=== PATIENT | female | born 1975 | race Two or more races ===

== ENCOUNTER 2022-07-19 13:09 | Emergency (ER) | payer BC ==
[~2022-07-19] VITALS: Ht 170.2 cm; Wt 70.9 kg
[~2022-07-19 13:09] MED LIST: DIAZ5TAB PO
[2022-07-19] MEDS ORDERED: iohexol 350MG/ML 100ml bottle IV ONE (13:28)
[2022-07-19 13:43] LABS: BASOPHILS % (AUTO) 0.5 % (0-1); EOSINOPHILS # (AUTO) 0.1 X10'3 (0-0.9); EOSINOPHILS % (AUTO) 0.8 % (0-6); HEMATOCRIT 40.7 % (35.0-45.0); HEMOGLOBIN 13.2 g/dl (12.0-16.0); LYMPHOCYTES # (AUTO) 2.5 X10'3 (1.1-4.8); LYMPHOCYTES % (AUTO) 27.4 % (21-51); MEAN CORPUSCULAR HEMOGLOBIN 26.4 PG (27.0-31.0); MEAN CORPUSCULAR HGB CONC 32.3 g/dL (33.0-36.5); MEAN CORPUSCULAR VOLUME 81.6 FL (78-98); MEAN PLATELET VOLUME 7.7 FL (7.4-10.4); MONOCYTES # (AUTO) 0.6 X10'3 (0-0.9); MONOCYTES % (AUTO) 6.8 % (2-12); NEUTROPHILS # (AUTO) 5.9 X10'3 (1.8-7.7); NEUTROPHILS % (AUTO) 64.5 % (42-75); PLATELET COUNT 255 X10'3 (140-440); RED BLOOD COUNT 4.99 X10'6 (4.20-5.60); WHITE BLOOD COUNT 9.1 X10'3 (4.5-11.0)
[2022-07-19] MEDS ORDERED: proCHLORperazine 10 MG/2 ml inj IV ONE (13:55)
[2022-07-19] MEDS ORDERED: ketorolac trometh. 30mg/ml inj. IV ONE (13:55)
[2022-07-19 14:00] LABS: ALANINE AMINOTRANSFERASE 38 U/L (12-78); ALBUMIN 3.6 G/DL (3.4-5.0); ALBUMIN/GLOBULIN RATIO 0.9 (1.1-1.5); ALKALINE PHOSPHATASE 138 IU/L (46-116); ANION GAP 7 (8-16); ASPARTATE AMINO TRANSFERASE 32 U/L (10-37); BILIRUBIN,TOTAL 0.4 MG/DL (0.1-1.0); BLOOD UREA NITROGEN 10 MG/DL (7-18); BUN/CREATININE RATIO 15.4 (6.6-38.0); CALCIUM 8.9 MG/DL (8.5-10.1); CHLORIDE 103 MMOL/L (99-107); CREATININE 0.65 MG/DL (0.40-0.90); GLUCOSE 99 MG/DL (70-104); POTASSIUM 3.6 MMOL/L (3.5-5.1); SODIUM 137 MMOL/L (135-145); TOTAL CARBON DIOXIDE 27.2 MMOL/L (24-32); TOTAL PROTEIN 7.8 G/DL (6.4-8.2); eGFR > 90 ML/MIN
[2022-07-19] MEDS ORDERED: ketorolac tromethamine 15mg/ml inj. IV ONE (14:00)
[2022-07-19 14:29] VITALS: BP 121/76
[2022-07-19] MEDS ORDERED: acetaminophen 325mg tablet PO ONE (14:55)
== END 2022-07-19 16:03 | disposition home or self-care (01) ==
LOC: ER 13:10
DX: G43.909 Migraine, unspecified, not intractable, without status migrainosus (principal); R79.1 Abnormal coagulation profile; Z79.899 Other long term (current) drug therapy
CPT/HCPCS: 36415; 70450; 70496; 70498; 71045; 80053; 83735; 83880; 84484; 85025; 85610; 86885; 86900; 86901; 93005; 96374; 96375; 99285; J0780; J1885; J3490; Q9967

== ENCOUNTER 2023-03-14 08:45 | Emergency (ER) | payer BC ==
[~2023-03-14] VITALS: Ht 167.6 cm; Wt 86.4 kg
[2023-03-14 08:50] VITALS: TEMP 98.2
[2023-03-14] MEDS ORDERED: iohexol 350MG/ML 100ml bottle IV ONE ×2 (08:52→09:34)
--- NOTE | 2023-03-14 08:53 | NUR ---
DR NIX AT BEDSIDE, MANAGER MOTOR AT BEDSIDE.
--- NOTE | 2023-03-14 08:54 | NUR ---
PATIENT TO CT AT THIS TIME WITH PRIMARY RN.
--- NOTE | 2023-03-14 09:13 | NUR ---
AWAITING FOR STROKE RN.
--- NOTE | 2023-03-14 09:16 | NUR ---
Andreea stroke RN at bedside, neuro tele on going at bedside,family at bedside.
[2023-03-14] MEDS ORDERED: diphenhydrAMINE 50 mg/ml inj IV ONE (09:20)
[2023-03-14] MEDS ORDERED: ondansetron/PF 4mg/2ml inj IV ONE (09:20)
[2023-03-14] MEDS ORDERED: ketorolac trometh. 30mg/ml inj. IV ONE (09:20)
[2023-03-14 09:30] LABS: BASOPHILS # (AUTO) 0.1 X10'3 (0-0.2); EOSINOPHILS # (AUTO) 0.2 X10'3 (0-0.9); HEMATOCRIT 43.5 % (35.0-45.0); MEAN CORPUSCULAR HEMOGLOBIN 26.1 PG (27.0-31.0); MEAN CORPUSCULAR HGB CONC 32.2 g/dL (33.0-36.5); MEAN CORPUSCULAR VOLUME 81.2 FL (78-98); MEAN PLATELET VOLUME 8.4 FL (7.4-10.4); MONOCYTES # (AUTO) 0.6 X10'3 (0-0.9); MONOCYTES % (AUTO) 8.1 % (2-12); NEUTROPHILS # (AUTO) 3.7 X10'3 (1.8-7.7); NEUTROPHILS % (AUTO) 48.9 % (42-75); PLATELET COUNT 296 X10'3 (140-440); RED BLOOD COUNT 5.36 X10'6 (4.20-5.60); WHITE BLOOD COUNT 7.6 X10'3 (4.5-11.0)
[2023-03-14 09:32] LABS: APTT 27 SECONDS (22-32); INR 0.9 INR
[2023-03-14 09:34] LABS: ALANINE AMINOTRANSFERASE 92 U/L (12-78); ALBUMIN 3.5 G/DL (3.4-5.0); ALBUMIN/GLOBULIN RATIO 0.8 (1.1-1.5); ALKALINE PHOSPHATASE 216 IU/L (46-116); ANION GAP 5 (8-16); BILIRUBIN,TOTAL 0.4 MG/DL (0.1-1.0); BLOOD UREA NITROGEN 12 MG/DL (7-18); BUN/CREATININE RATIO 14.6 (10.0-20.0); CALCIUM 9.4 MG/DL (8.5-10.1); CHLORIDE 105 MMOL/L (99-107); CREATININE 0.82 MG/DL (0.40-0.90); GLUCOSE 131 MG/DL (70-104); SODIUM 138 MMOL/L (135-145); TOTAL PROTEIN 7.9 G/DL (6.4-8.2); eCRCL 79 ML/MIN; eGFR 75 ML/MIN
[2023-03-14 09:37] LABS: ASPARTATE AMINO TRANSFERASE 66 U/L (10-37); POTASSIUM 4.6 MMOL/L (3.5-5.1)
[2023-03-14 09:42] LABS: ETHANOL < 10 MG/DL (<10)
[2023-03-14 10:12] VITALS: BP 121/80; PULSE 90; O2SAT 100
[2023-03-14 10:17] VITALS: RESP 18
[2023-03-14 10:24] LABS: PROTHROMBIN TIME 10.1 SECONDS (9.0-12.0)
[2023-03-14] MEDS ORDERED: NAPR-56 PO (11:30)
== END 2023-03-14 11:50 | disposition home or self-care (01) ==
LOC: ER 08:46
DX: G43.809 Other migraine, not intractable, without status migrainosus (principal); Z88.5 Allergy status to narcotic agent; Z79.899 Other long term (current) drug therapy
CPT/HCPCS: 36415; 70450; 70496; 70498; 71045; 80053; 80320; 82140; 82948; 84484; 85025; 85610; 85730; 93005; 96374; 96375; 99285; J1200; J1885; J2405; J3490; Q9967